=== PATIENT | female | born 1975 | race Hispanic/Latino ===

== ENCOUNTER 2021-02-19 00:11 | Emergency (ER) | payer MEDICAID, OTHER ==
[~2021-02-19] VITALS: Ht 154.9 cm; Wt 68.5 kg
[2021-02-19 02:44] LABS: BASOPHILS % (AUTO) 0.5 % (0.0-5.0); EOSINOPHILS % (AUTO) 2.1 % (0.0-8.0); HEMATOCRIT 36.8 % (36-48); LYMPHOCYTES % (AUTO) 39.1 % (21.0-51.0); MEAN CORPUSCULAR HEMOGLOBIN 31.1 pg (27.0-33.0); MEAN CORPUSCULAR VOLUME 91.5 fL (79-99); MONOCYTES % (AUTO) 6.9 % (3.0-13.0); PLATELET COUNT (AUTO) 321 K/uL (130-400); RED BLOOD CELL COUNT(AUTO) 4.02 MIL/uL (4.00-5.50); RED CELL DISTRIBUTION WIDTH 12.7 % (11.0-15.5); WHITE BLOOD COUNT (AUTO) 9.7 K/uL (4.8-10.8)
[2021-02-19 02:54] LABS: CREATININE 0.9 mg/dL (0.5-1.5); POTASSIUM 3.6 mmol/L (3.5-5.1)
[2021-02-19 02:58] LABS: ALBUMIN 3.9 g/dL (3.5-5.0); BILIRUBIN,TOTAL 0.5 mg/dL (0.2-1.0); TOTAL PROTEIN, SERUM 7.6 g/dL (6.0-8.3)
[2021-02-19 04:54] LABS: BILIRUBIN,URINE Negative (NEGATIVE); COLOR,URINE Yellow (YELLOW); GLUCOSE, URINE (UA) Negative (NEGATIVE); KETONES,URINE 15 mg/dL (NEGATIVE); LEUKOCYTE ESTERASE ,URINE Moderate (NEGATIVE); NITRATE,URINE Negative (NEGATIVE); OCCULT BLOOD,URINE Negative (NEGATIVE); PROTEIN,URINE Trace mg/dL (NEGATIVE)
[2021-02-19 04:55] LABS: APPEARANCE,URINE HAZY (CLEAR)
[2021-02-19 04:56] LABS: HCG,QUAL RESULT NEGATIVE (NEGATIVE)
[2021-02-19] MEDS ORDERED: ONDANSETRON 4MG INJ IVP ONE (05:00)
[2021-02-19] MEDS ORDERED: 0.9%NACL 1000ML 1,000 ML IV ONE (05:00)
[2021-02-19 05:05] LABS: BACTERIA,URINE Few /HPF (None Seen); RBC,URINE 0-1 /HPF (0-1)
[2021-02-19] MEDS ORDERED: ONDA4TAB4 PO (05:39)
[2021-02-19 05:53] VITALS: BP 109/69
== END 2021-02-19 05:54 | disposition home or self-care (01) ==
LOC: EDH 00:11
DX: A08.4 Viral intestinal infection, unspecified (principal); E86.9 Volume depletion, unspecified; Z79.899 Other long term (current) drug therapy
CPT/HCPCS: 36415; 80053; 81001; 81025; 83690; 85025; 87088; 96361; 96374; 99283; J2405; J7030

== ENCOUNTER 2021-11-20 15:32 | Emergency (ER) | payer MEDICAID, OTHER ==
[~2021-11-20] VITALS: Ht 152.4 cm; Wt 65.8 kg
[~2021-11-20 15:32] MED LIST: ONDA4TAB4 PO
[2021-11-20 16:19] LABS: APPEARANCE,URINE CLEAR (CLEAR); BILIRUBIN,URINE NEGATIVE (NEGATIVE); COLOR,URINE YELLOW (YELLOW); GLUCOSE, URINE (UA) NEGATIVE (NEGATIVE); KETONES,URINE 5 mg/dL (NEGATIVE); LEUKOCYTE ESTERASE ,URINE NEGATIVE (NEGATIVE); NITRATE,URINE NEGATIVE (NEGATIVE); OCCULT BLOOD,URINE NEGATIVE (NEGATIVE); PROTEIN,URINE NEGATIVE (NEGATIVE); UROBILINOGEN,URINE 0.2 mg/dL (0.2-1.0)
[2021-11-20 16:43] LABS: HCG,QUALITATIVE URINE NEGATIVE (NEGATIVE)
[2021-11-20 16:53] LABS: BACTERIA,URINE Few /HPF (None Seen); CALCIUM OXALATE CRYSTALS,UR Few /LPF (None Seen); RBC,URINE 0-1 /HPF (0-1); SQUAMOUS EPITHELIAL CELL,UR Few /HPF (0-2); WBC,URINE 0-1 /HPF (0-1)
[2021-11-20 16:54] LABS: MUCUS,URINE Few LPF (None Seen)
[2021-11-20 17:21] VITALS: BP 126/74
== END 2021-11-20 17:23 | disposition home or self-care (01) ==
LOC: EDH 15:32
DX: B34.9 Viral infection, unspecified (principal); Z20.822 Contact with and (suspected) exposure to COVID-19
CPT/HCPCS: 99284; 71045; 87635; 87804 ×2; 81001; 81025; C9803

== ENCOUNTER 2024-11-24 00:01 | Emergency (ER) | payer BC ==
[~2024-11-24] VITALS: Ht 152.4 cm; Wt 66.2 kg
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
[2024-11-24 00:22] LABS: APPEARANCE,URINE CLEAR (CLEAR); GLUCOSE, URINE (UA) NEGATIVE (NEGATIVE); LEUKOCYTE ESTERASE ,URINE NEGATIVE Leu/uL (NEGATIVE); NITRATE,URINE NEGATIVE (NEGATIVE); OCCULT BLOOD,URINE NEGATIVE (NEGATIVE)
[2024-11-24 00:24] LABS: ADD UA MICROSCOPIC NO; HCG,QUALITATIVE URINE NEGATIVE (NEGATIVE)
[2024-11-24 00:40] LABS: CREATININE 0.6 mg/dL (0.5-1.0); GLOMERULAR FILTR. RATE CALC 111.0 mL/min (>90); GLUCOSE,RANDOM 105.0 mg/dL (70-105); SODIUM SERUM 137.0 mmol/L (136-145); UREA NITROGEN, BLOOD 18.0 mg/dL (7-18)
[2024-11-24 00:44] LABS: IMMATURE GRANULOCYTE ABSOLUTE 0.02 K/uL (0-1); NUCLEATED RED BLOOD CELLS 0.0 % (0.0-0.19); PLATELET COUNT (AUTO) 342 K/uL (130-400); RED BLOOD CELL COUNT(AUTO) 3.88 MIL/uL (4.00-5.50); RED CELL DISTRIBUTION WIDTH 13.0 % (11.0-15.5); WHITE BLOOD COUNT (AUTO) 7.0 K/uL (4.8-10.8)
[2024-11-24] MEDS ORDERED: CYCL5TAB3 PO (01:06)
[2024-11-24] MEDS ORDERED: KETO10 PO (01:06)
[2024-11-24 01:51] VITALS: BP 108/67; PULSE 65; RESP 15; TEMP 97.9; O2SAT 100
--- NOTE | 2024-11-24 03:09 | HMCIMG ---
EXAM: CR Chest, 1 view CLINICAL HISTORY: Chest pain. COMPARISON: Chest radiograph dated 11/20/2021. FINDINGS: The lungs show no infiltrates or other acute findings. No pleural effusion or pneumothorax. The cardiomediastinal silhouette is within normal limits. No acute osseous abnormality. Mildly elevated left hemidiaphragm with prominent underlying bowel gases. IMPRESSION: No acute cardiopulmonary process is evident. No interval changes. /[place]
== END 2024-11-24 01:59 | disposition home or self-care (01) ==
LOC: EDH 00:01
DX: K80.50 Calculus of bile duct without cholangitis or cholecystitis without obstruction (principal); M54.2 Cervicalgia; Z79.899 Other long term (current) drug therapy; Z98.890 Other specified postprocedural states
CPT/HCPCS: 99284; 96374; 71045; 80048; 83690; 85025; 81003; 81025; 36415; J1885